=== PATIENT | male | born 1975 | race African-American/Black ===

== ENCOUNTER 2022-01-20 12:13 | Emergency (ER) | payer MEDICARE, MEDICAID ==
[~2022-01-20] VITALS: Ht 180.3 cm; Wt 118.2 kg
[2022-01-20] MEDS ORDERED: KETOROLAC TROMETHAMINE 30 MG/ML VIAL IM ONE (17:15)
[2022-01-20 17:53] VITALS: BP 141/87
[2022-01-20] MEDS ORDERED: BACL10TA PO (17:53)
== END 2022-01-20 18:02 | disposition home or self-care (01) ==
LOC: EMS 12:13
DX: R10.32 Left lower quadrant pain (principal); Z98.890 Other specified postprocedural states
CPT/HCPCS: 99284; 72131; 74176; 96372; J1885